=== PATIENT | male | born 1965 | race American Indian/Alaskan Native ===

== ENCOUNTER 2016-07-16 02:06 | Emergency (ER) | payer SELFPAY ==
[2016-07-16 02:28] VITALS: BP 138/91
[2016-07-16] MEDS ORDERED: PEPCID PO ONE (04:12)
[2016-07-16] MEDS ORDERED: BENADRYL PO ONE (04:12)
[2016-07-16] MEDS ORDERED: DECADRON IM ONE (04:12)
--- NOTE | 2016-07-16 04:54 | Emergency Department Report ---
HPI - General Chief Complaint: Allergic Reaction Time Seen by Provider: 07/16/16 04:02 - HPI HPI: 50-year-old male presents with a complaining of itching and rash all over body post eating crabs at 0000 hours today. Denies history of allergies. Positive for one episode of vomiting. Denies trying any medication for symptomatic relief. Denies fever, chills, nausea, chest pain, shortness of breath, abdominal pain, difficulty breathing or difficulty in swallowing. ED Past Medical Hx - Past Medical History Previous Medical History?: Yes Hx Hypertension: Yes - Surgical History Past Surgical History?: Yes Additional Surgical History: HIP REPLACEMENT - Social History Smoking Status: Current Every Day Smoker Substance Use Type: None - Medications Home Medications: Home Medications Medication Instructions Recorded Confirmed Last Taken Type amLODIPine [Norvasc] 10 mg PO DAILY 07/16/16 07/16/16 1 Day Ago History 10mg diphenhydrAMINE [Benadryl CAP] 25 mg PO Q6HR PRN #30 capsule 07/16/16 Unknown Rx predniSONE [Deltasone] 20 mg PO QDAY #5 tab 07/16/16 Unknown Rx ED Review of Systems ROS: Stated complaint: POSS ALLERGIC REACTION Other details as noted in HPI Constitutional: denies: chills, fever, malaise Eyes: denies: eye pain ENT: denies: ear pain, throat pain, congestion Respiratory: denies: cough, shortness of breath, wheezing Cardiovascular: denies: chest pain, palpitations Endocrine: no symptoms reported Gastrointestinal: denies: abdominal pain, nausea, vomiting Skin: rash, pruritus Neurological: denies: headache, weakness Physical Exam - Physical Exam Vital Signs: Vital Signs 07/16/16 02:23 Temperature 98.3 F Pulse Rate 95 H Respiratory 18 Rate Blood Pressure 138/91 O2 Sat by Pulse 95 Oximetry Physical Exam: GENERAL: The patient is well-developed and well-nourished. Patient is in NAD. SKIN: Erythema, blanching noted over neck and trunk. Positive for pruritus. No wheals or signs of infection. HEAD: Normocephalic. Atraumatic. EYES: PERRL. NOSE: Normal nasal mucosa with no nasal discharge. THROAT: No erythema, swelling or exudates. NECK: Supple, nontender, without lymphadenopathy. No meningitic signs are noted. CHEST/LUNGS: Clear to auscultation throughout. HEART/CARDIOVASCULAR: Regular rate and rhythm. No murmurs, rubs or gallops. ABDOMEN: Abdomen is soft, nontender. Bowel sounds normoactive. No guarding or rebound tenderness. EXTREMITIES: Peripheral pulses intact. Capillary refill less than 2 seconds. NEURO: Alert and oriented x 3. Normal gait. ED Course Vital Signs 07/16/16 02:23 Temperature 98.3 F Pulse Rate 95 H Respiratory 18 Rate Blood Pressure 138/91 O2 Sat by Pulse 95 Oximetry ED Medical Decision Making - Lab Data Vital Signs 07/16/16 02:23 Temperature 98.3 F Pulse Rate 95 H Respiratory 18 Rate Blood Pressure 138/91 O2 Sat by Pulse 95 Oximetry - Medical Decision Making 50-year-old male presents today with a possible allergic reaction post eating crab. Patient reports symptomatic relief post medication. Patient is in no acute distress at this time. He will be discharged home and is encouraged to follow up with a primary care provider. He will be sent home on Benadryl and prednisone and is encouraged to return to the emergency room for any worsening symptoms. Critical care attestation.: If time is entered above; I have spent that time in minutes in the direct care of this critically ill patient, excluding procedure time. ED Disposition Clinical Impression: Allergic reaction Qualifiers: Encounter type: initial encounter Qualified Code(s): T78.40XA - Allergy, unspecified, initial encounter Disposition: DISCHARGED TO HOME OR SELFCARE Is pt being admited?: No Does the pt Need Aspirin: No Condition: Stable Instructions: Urticaria (ED), Anaphylaxis (ED), Food Allergy (ED) Additional Instructions: Follow-up with primary care provider. Return to the emergency department if symptoms worsen. Prescriptions: diphenhydrAMINE [Benadryl CAP] 25 mg PO Q6HR PRN #30 capsule PRN Reason: Itching predniSONE [Deltasone] 20 mg PO QDAY #5 tab Referrals: PRIMARY CARE, [Primary Care Provider] - 3-5 Days [facility] [Outside] - 3-5 Days Forms: Work/School Release Form(ED) Time of Disposition: 04:54
== END 2016-07-16 05:08 | disposition home or self-care (01) ==
LOC: ED 02:06
DX: T78.40XA Allergy, unspecified, initial encounter (principal); I10 Essential (primary) hypertension; F17.200 Nicotine dependence, unspecified, uncomplicated
CPT/HCPCS: 96372; 99282; J1100

== ENCOUNTER 2017-05-08 09:40 | Outpatient (CLI) | payer OTHER ==
--- NOTE | 2017-05-08 16:08 | XRay Report ---
Thoracic spine 2 views: History: Back problem. Knee problem. Findings: Normal height of vertebral bodies. Minimal decrease in height of lower thoracic and mid thoracic interspaces. Sclerotic articular surfaces with early degenerative changes. No fracture. No soft tissue calcification or paravertebral mass. Impression: Mild degenerative changes thoracic spine being more pronounced at the lower thoracic spine.
--- NOTE | 2017-05-08 16:09 | XRay Report ---
Right knee 3 views: History: Knee pain. Findings: There is minimal narrowing noted of the medial and patellofemoral compartment knee joint. There is tiny spur identified the posterior superior patella. No fracture. No soft tissue calcification or joint effusion. Impression: Probable early degenerative change patellofemoral compartment.
== END 2017-05-08 09:41 | disposition home or self-care (01) ==
LOC: XRAY 09:40
PROVIDERS: ATTEND Internal Medicine
DX: M47.894 Other spondylosis, thoracic region (principal); I10 Essential (primary) hypertension; M25.852 Other specified joint disorders, left hip; M25.851 Other specified joint disorders, right hip; M25.861 Other specified joint disorders, right knee; M25.862 Other specified joint disorders, left knee
CPT/HCPCS: 72070